=== PATIENT | female | born 1995 | race African-American/Black ===

== ENCOUNTER 2017-02-16 13:17 | Emergency (ER) | payer OTHER ==
[2017-02-16 14:39] LABS: ABSOLUTE LYMPHOCYTES (AUTO) 1.2 10^3/uL (0.5-4.7); ABSOLUTE MONOCYTES (AUTO) 0.7 10^3/uL (0.1-1.4); ABSOLUTE NEUT (AUTO) 5.1 10^3/uL (1.7-8.2); BASOPHILS % (AUTO) 0.3 % (0-2); EOSINOPHILS % (AUTO) 0.1 % (0-6); HEMATOCRIT 36.2 % (36.0-47.0); HGB HCT DIFFERENCE -0.2; LYMPHOCYTES % (AUTO) 17.4 % (13-45); MEAN CORPUSCULAR HEMOGLOBIN 26.7 pg (27.0-33.4); MEAN CORPUSCULAR HGB CONC 33.2 g/dL (32.0-36.0); MEAN CORPUSCULAR VOLUME 80 fl (80-97); MONOCYTES % (AUTO) 9.2 % (3-13); RED BLOOD COUNT 4.51 10^6/uL (3.72-5.28)
--- NOTE | 2017-02-16 18:56 | ER Document Report ---
ED GI/ - General Chief Complaint: Vaginal Bleeding Stated Complaint: VAGINAL BLEEDING Mode of Arrival: Ambulatory Information source: Patient Notes: 21 y/o F presents to ED c/o vaginal spotting and pelvic cramping. Pt reports had vaginal delivery at 24 weeks gestation 8 months. Reports has had intermittent episodes of light vaginal bleeding since delivery so is unsure of when her actual LMP was. Reports 2 weeks ago had positive home test, . States yesterday evening had some light pelvic cramping which resolved this morning but noted small amount of vaginal spotting today. Reports bleeding seems to have stopped and cramping has not returned but wanted to be evaluated since she had delivery in the past. Denies fever, n/v, dysuria, or blood in stool. TRAVEL OUTSIDE OF THE [place] IN LAST 30 DAYS: No - HPI Patient complains to provider of: Pelvic pain, , Vaginal bleeding Onset: This morning Timing/Duration: Gone Quality of pain: Cramping Severity at maximum: Mild Severity in ED: Mild, None Vaginal bleeding (Compared to normal period): Spotting Menstrual period history: Irregular : 2 Para: 1 OB ultrasound done: No vitamins taken: Yes Similar symptoms previously: Yes Recently seen / treated by doctor: No - Related Data Allergies/Adverse Reactions: carrot Allergy (Intermediate, Verified 02/16/17 14:02) shellfish derived Allergy (Intermediate, Verified 02/16/17 14:02) nut - unspecified Adverse Reaction (Unknown, Verified 02/16/17 14:02) Unknown reaction Past Medical History - General Information source: Patient Last Menstrual Period: Dec - Social History Smoking Status: Never Smoker Chew tobacco use (# tins/day): No Frequency of alcohol use: None Drug Abuse: None Lives with: Family Family History: Reviewed & Not Pertinent Patient has suicidal ideation: No Patient has homicidal ideation: No Pulmonary Medical History: Reports: Hx Asthma Renal/ Medical History: Denies: Hx Peritoneal Dialysis Surgical Hx: Negative - Immunizations Immunizations up to date: Yes Hx Diphtheria, Pertussis, Tetanus Vaccination: Yes Review of Systems - Review of Systems Constitutional: No symptoms reported EENT: No symptoms reported Cardiovascular: No symptoms reported Respiratory: No symptoms reported Gastrointestinal: No symptoms reported Genitourinary: No symptoms reported Female Genitourinary: See HPI Musculoskeletal: No symptoms reported Skin: No symptoms reported Hematologic/Lymphatic: No symptoms reported Neurological/Psychological: No symptoms reported -: Yes All other systems reviewed and negative Physical Exam - Vital signs Vitals: Temp Pulse BP Pulse Ox 98.6 F 129 H 134/85 H 100 02/16/17 14:05 02/16/17 14:05 02/16/17 14:05 02/16/17 14:05 - General General appearance: Appears well, Alert In distress: None - HEENT Head: Normocephalic, Atraumatic Eyes: Normal Pupils: PERRL - Respiratory Respiratory status: No respiratory distress Chest status: Nontender Breath sounds: Normal - CTAB Chest palpation: Normal - Cardiovascular Rhythm: Regular Heart sounds: Normal auscultation Murmur: No Pulses: Normal: Radial Normal capillary refill: Yes - Abdominal Inspection: Normal, Gravid female Distension: No distension Bowel sounds: Normal Tenderness: Nontender Organomegaly: No organomegaly - Back Back: Normal, Nontender - Extremities General upper extremity: Normal inspection, Nontender, Normal color, Normal ROM , Normal strength, Normal temperature. No: Edema General lower extremity: Normal inspection, Nontender, Normal color, Normal ROM , Normal strength, Normal temperature, Normal weight bearing. No: Edema - Neurological Neuro grossly intact: Yes Cognition: Normal Orientation: AAOx4 Ravena Coma Scale Eye Opening: Spontaneous Yunior Coma Scale Verbal: Oriented Yunior Coma Scale Motor: Obeys Commands Ravena Coma Scale Total: 15 Speech: Normal Motor strength normal: LUE, RUE, LLE, RLE Sensory: Normal - Skin Skin Temperature: Warm Skin Moisture: Dry Skin Color: Normal Course - Re-evaluation Re-evalutation: 02/16/17 18:50 Pt hemodynamically stable in no distress, afebrile. Labs unremarkable. Rhogam not indicated. U/S shows 11 week living intrauterine with subchorionic bleed. Discussed close follow-up with patient and repeat evaluation in 48hrs. Pt appears stable for discharge and agrees with home care, follow-up, and ED return precautions. - Vital Signs Vital signs: Temp Pulse Resp BP Pulse Ox 98.0 F 98 18 118/71 99 02/16/17 16:58 02/16/17 16:58 02/16/17 16:58 02/16/17 16:58 02/16/17 16:58 - Laboratory Result Diagrams: 04/10/17 14:25 Laboratory results interpreted by me: 02/16/17 02/16/17 14:25 14:25 MCH 26.7 L Beta HCG, Quant 256167.00 H - Diagnostic Test Radiology reviewed: Image reviewed, Reports reviewed Discharge - Discharge Clinical Impression: Vaginal bleeding in patient at less than 20 weeks gestation Condition: Stable Disposition: HOME, SELF-CARE Additional Instructions: BLEEDING DURING EARLY : You have been evaluated for passing blood while . While we take this symptom very seriously, many women with your sympstoms will go on to have a perfectly normal baby. At this time, there is no indication that a miscarriage will occur. (A miscarriage occurs when the fetus is abnormal. There is no medicine or treatment to prevent it.) You should rest in bed until the symptoms have resolved. Do not douche or have sex for at least a week, or until OK'd by your provider. Don't use tampons. Return for re-examination if there is an increase in bleeding or cramping, extreme weakness, fainting, new abdominal pain, fever, or passage of tissue. REPEAT BLOOD TEST: During the first three months of , the hormone produced from the placenta will steadily rise, usually doubling in value every 2 - 3 days. In order to determine if your is likely be succesful, a repeat of this blood test for the hormone is recommended in 2 - 3 days. An order for this test to be done as an outpatient is being provided. After you have this repeat test done, call your doctor or call us for the results. If the value of the test is increasing as would be expected in a normal , then your is likely to be ok. However, if the value of the test is declining, it will suggest something has happened with your and it will not likely be a successful . FOLLOW-UP CARE: Continue taking your daily vitamins. Follow-up with your MACHINE COIL ASSEMBLER tomorrow. If you experience worsening or a significant change in your symptoms (very heavy bleeding with large clots of blood, passage of tissue, more severe abdominal / pelvic pain or cramping, feeling faint or severe weakness, fever, etc.), notify the physician immediately or return to the Emergency Department at any time for re-evaluation. Forms: Follow-Up Laboratory Testing Referrals: ISIDRO LINTON MD [Primary Care Provider] - Follow up tomorrow
[2017-02-16 21:56] VITALS: BP 117/66
== END 2017-02-16 20:15 | disposition home or self-care (01) ==
LOC: ER 13:17
DX: O46.91 Antepartum hemorrhage, unspecified, first trimester (principal); R10.2 Pelvic and perineal pain
CPT/HCPCS: 36415; 76817; 84702; 85025; 86900; 86901; 99284

== ENCOUNTER 2017-03-08 21:05 | Emergency (ER) | payer OTHER ==
[2017-03-08 21:48] VITALS: BP 120/75
--- NOTE | 2017-03-08 23:30 | ER Document Report ---
ED General - General Chief Complaint: OB Problem (<20wks) Stated Complaint: VAGINAL BLEEDING Mode of Arrival: Ambulatory Information source: Patient Notes: This is a 21-year-old female at 14+3 WGA who presents with vaginal bleeding started this evening. Of note, her first was complicated by delivery at 24 weeks gestation secondary to placental abruption, July 2016. Currently she denies any pain however she states she did have several episodes of severe lower pelvic and vaginal pain while she was in the waiting room. She denies passing any clots or tissue. TRAVEL OUTSIDE OF THE [place] IN LAST 30 DAYS: No - Related Data Allergies/Adverse Reactions: carrot Allergy (Intermediate, Verified 03/08/17 21:46) shellfish derived Allergy (Intermediate, Verified 03/08/17 21:46) Past Medical History - General Information source: Patient, [facility] Records - Social History Smoking Status: Never Smoker Frequency of alcohol use: None Drug Abuse: None Lives with: Family Family History: Reviewed & Not Pertinent - Medical History Notes: Placental abruption and delivery 24 weeks Jul 2016 Pulmonary Medical History: Reports: Hx Asthma Renal/ Medical History: Denies: Hx Peritoneal Dialysis - Immunizations Immunizations up to date: Yes Hx Diphtheria, Pertussis, Tetanus Vaccination: Yes Review of Systems - Review of Systems Constitutional: No symptoms reported. denies: Chills, Fever EENT: No symptoms reported Cardiovascular: No symptoms reported Respiratory: No symptoms reported Gastrointestinal: See HPI Genitourinary: No symptoms reported Female Genitourinary: See HPI Musculoskeletal: No symptoms reported Skin: No symptoms reported Hematologic/Lymphatic: No symptoms reported Neurological/Psychological: No symptoms reported Physical Exam - Vital signs Vitals: Temp Pulse BP Pulse Ox 98.6 F 125 H 120/75 100 03/08/17 21:46 03/08/17 21:46 03/08/17 21:46 03/08/17 21:46 - Notes Notes: PHYSICAL EXAMINATION: GENERAL: Well-appearing, well-nourished and in no acute distress. HEAD: Atraumatic, normocephalic. EYES: Pupils equal round and reactive to light, extraocular movements intact, sclera anicteric, conjunctiva are normal. ENT: nares patent, oropharynx clear without exudates. Moist mucous membranes. NECK: Normal range of motion, supple without lymphadenopathy LUNGS: Breath sounds clear to auscultation bilaterally and equal. No wheezes rales or rhonchi. HEART: Regular rate and rhythm without murmurs ABDOMEN: Gravid, Soft, mild suprapubic tenderness to palpation, normoactive bowel sounds. No guarding, no rebound. No masses appreciated. PELVIC: No external lesions noted. Moderate blood in vault with small clot removed with cotton swabs. Cervix visualized, trickle bleeding noted. EXTREMITIES: Normal range of motion, no pitting or edema. No cyanosis. NEUROLOGICAL: Cranial nerves grossly intact. Normal speech. No gross focal motor or sensory deficits appreciated. PSYCH: Normal mood, normal affect. SKIN: Warm, Dry, normal turgor, no rashes or lesions noted. Course - Re-evaluation Re-evalutation: Patient remained hemodynamically stable and comfortable in the emergency department. Her ultrasound was reassuring with no evidence of subchorionic bleed or abruption. I discussed her case with the on-call OUTREACH CONSULTANT Dr. Brown who is in agreement with discharge and pelvic rest. Patient to follow-up in the OB clinic. Strict return precautions were discussed to include increased/heavier bleeding, fevers, or worsening symptoms. Patient and her family are reassured and in agreement with this plan. - Vital Signs Vital signs: Temp Pulse Resp BP Pulse Ox 98.6 F 125 H 120/75 100 03/08/17 21:46 03/08/17 21:46 03/08/17 21:46 03/08/17 21:46 - Laboratory Result Diagrams: 03/08/17 23:23 03/08/17 23:23 Laboratory results interpreted by me: 03/08/17 03/09/17 23:23 00:45 Hgb 10.9 L Hct 32.9 L MCH 26.6 L Urine Blood LARGE H - Diagnostic Test Radiology reviewed: Reports reviewed - US: Fetus at 14+6 with good heart motion, posterior placenta, cervix closed Discharge - Discharge Clinical Impression: Threatened in second trimester Condition: Stable Disposition: HOME, SELF-CARE Additional Instructions: BLEEDING DURING : You have been evaluated for passing blood while . While we take this symptom very seriously, most women with your degree of bleeding will go on to have a perfectly normal baby. At this time, there is no indication that a miscarriage will occur. (A miscarriage occurs when the fetus is abnormal. There is no medicine or treatment to prevent it.) Do not douche or have sex for at least a week, or until OK'd by the doctor. Don't use tampons. Call the doctor or return for re-examination if there is an increase in bleeding or cramping, extreme weakness, fainting, new abdominal pain, fever, or passage of tissue. THREATENED MISCARRIAGE: You have been evaluated for a possible miscarriage. At this time, there is no indication that a miscarriage will occur. Most women with your symptoms will go on to have a perfectly normal baby. However, careful observation will be necessary. A miscarriage occurs when the fetus is abnormal. There is no medicine or treatment for it. You should rest in bed until the symptoms have resolved. Do not douche or have sex for at least a week, or until OK'd by the doctor. Call the doctor or return for re-examination if there is an increase in bleeding or cramping, or passage of tissue. FOLLOW-UP CARE: If you have been referred to a physician for follow-up care, call the physician s office for an appointment as you were instructed or within the next two days. If you experience worsening or a significant change in your symptoms (very heavy bleeding with large clots of blood, passage of tissue, more severe abdominal / pelvic pain or cramping, feeling faint or severe weakness, fever, etc.), notify the physician immediately or return to the Emergency Department at any time for re-evaluation. OBSTETRIC-GYNECOLOGIC (OB-CONSULTING SME) PHYSICIANS IN [place]: [facility] [address] [place] [address] [phone] Referrals: MARCELLA BROWN MD [Primary Care Provider] - Follow up in 3-5 days
[2017-03-09 00:10] LABS: ABSOLUTE LYMPHOCYTES (AUTO) 1.2 10^3/uL (0.5-4.7); ABSOLUTE MONOCYTES (AUTO) 0.6 10^3/uL (0.1-1.4); ABSOLUTE NEUT (AUTO) 6.1 10^3/uL (1.7-8.2); BASOPHILS % (AUTO) 0.4 % (0-2); EOSINOPHILS % (AUTO) 0.5 % (0-6); HEMATOCRIT 32.9 % (36.0-47.0); HEMOGLOBIN 10.9 g/dL (12.0-15.5); HGB HCT DIFFERENCE -0.2; LYMPHOCYTES % (AUTO) 14.6 % (13-45); MEAN CORPUSCULAR HEMOGLOBIN 26.6 pg (27.0-33.4); MEAN CORPUSCULAR HGB CONC 33.1 g/dL (32.0-36.0); MEAN CORPUSCULAR VOLUME 80 fl (80-97); MONOCYTES % (AUTO) 7.6 % (3-13); RED CELL DISTRIBUTION WIDTH 13.5 % (11.5-14.0); SEGMENTED NEUTROPHILS % (AUTO) 76.9 % (42-78); WHITE BLOOD COUNT 7.9 10^3/uL (4.0-10.5)
[2017-03-09 00:44] LABS: PROTHROMBIN TIME 13.8 SEC (11.4-15.4)
[2017-03-09 00:45] LABS: FIBRINOGEN 405 mg/dL (209-497); PARTIAL THROMBOPLASTIN TIME 31.4 SEC (23.5-35.8)
[2017-03-09 01:07] LABS: AMORPHOUS SEDIMENT,URINE TRACE /HPF; APPEARANCE,URINE SLIGHTLY-CLOUDY; BILIRUBIN,URINE NEGATIVE (NEGATIVE); GLUCOSE, URINE NEGATIVE (NEGATIVE); KETONES,URINE NEGATIVE (NEGATIVE); LEUKOCYTE ESTERASE,URINE NEGATIVE (NEGATIVE); NITRITE,URINE NEGATIVE (NEGATIVE); PROTEIN,URINE NEGATIVE (NEGATIVE); URINE SPECIFIC GRAVITY 1.019; UROBILINOGEN,URINE NEGATIVE mg/dL (<2.0)
[2017-03-09 01:30] LABS: ALANINE AMINOTRANSFERASE 20 U/L (9-52); ALBUMIN 3.7 g/dL (3.5-5.0); ALKALINE PHOSPHATASE 66 U/L (38-126); ANION GAP 13 (5-19); ASPARTATE AMINO TRANSFERASE 20 U/L (14-36); BILIRUBIN,DIRECT 0.2 mg/dL (0.0-0.4); BILIRUBIN,TOTAL 0.4 mg/dL (0.2-1.3); BLOOD UREA NITROGEN 11 mg/dL (7-20); CALCIUM 10.2 mg/dL (8.4-10.2); CARBON DIOXIDE 24 mmol/L (22-30); CHLORIDE 107 mmol/L (98-107); CREATININE RESULT 0.67 mg/dL (0.52-1.25); GLUCOSE 107 mg/dL (75-110); POTASSIUM 4.2 mmol/L (3.6-5.0); SODIUM 144.2 mmol/L (137-145); TOTAL PROTEIN 7.1 g/dL (6.3-8.2)
== END 2017-03-09 02:09 | disposition home or self-care (01) ==
LOC: ER 21:05
DX: O20.0 Threatened abortion (principal); Z3A.14 14 weeks gestation of pregnancy
CPT/HCPCS: 36415; 76805; 80053; 81001; 85025; 85384; 85610; 85730; 99284

== ENCOUNTER 2017-04-23 21:13 | Inpatient (IN) | payer OTHER ==
[2017-04-23 21:42] LABS: APPEARANCE,URINE SLIGHTLY-CLOUDY; BILIRUBIN,URINE NEGATIVE (NEGATIVE); GLUCOSE, URINE NEGATIVE (NEGATIVE); KETONES,URINE NEGATIVE (NEGATIVE); LEUKOCYTE ESTERASE,URINE LARGE (NEGATIVE); NITRITE,URINE NEGATIVE (NEGATIVE); PROTEIN,URINE NEGATIVE (NEGATIVE); URINE SPECIFIC GRAVITY 1.017; UROBILINOGEN,URINE NEGATIVE mg/dL (<2.0)
[2017-04-23 21:54] LABS: URINE BARBITURATES SCREEN NEGATIVE; URINE METHADONE SCREEN NEGATIVE; URINE OPIATES LOW NEGATIVE; URINE PHENCYCLIDINE SCREEN NEGATIVE
[2017-04-23 22:39] LABS: ABSOLUTE LYMPHOCYTES (AUTO) 1.3 10^3/uL (0.5-4.7); ABSOLUTE MONOCYTES (AUTO) 1.1 10^3/uL (0.1-1.4); ABSOLUTE NEUT (AUTO) 6.1 10^3/uL (1.7-8.2); BASOPHILS % (AUTO) 0.2 % (0-2); EOSINOPHILS % (AUTO) 0.6 % (0-6); HEMATOCRIT 31.6 % (36.0-47.0); HEMOGLOBIN 10.3 g/dL (12.0-15.5); HGB HCT DIFFERENCE -0.7; LYMPHOCYTES % (AUTO) 14.7 % (13-45); MEAN CORPUSCULAR HEMOGLOBIN 25.9 pg (27.0-33.4); MEAN CORPUSCULAR HGB CONC 32.7 g/dL (32.0-36.0); MEAN CORPUSCULAR VOLUME 79 fl (80-97); MONOCYTES % (AUTO) 12.6 % (3-13); RED BLOOD COUNT 3.99 10^6/uL (3.72-5.28); RED CELL DISTRIBUTION WIDTH 13.1 % (11.5-14.0); SEGMENTED NEUTROPHILS % (AUTO) 71.9 % (42-78); WHITE BLOOD COUNT 8.5 10^3/uL (4.0-10.5)
--- NOTE | 2017-04-23 23:48 | RADIOLOGY REPORT (SQ) ---
EXAM DESCRIPTION: U/S OB LIMITED COMPLETED DATE/TIME: 04/23/2017 10:56 pm REASON FOR STUDY: cervical length,efw position of baby COMPARISON: None. TECHNIQUE: Limited transabdominal grayscale ultrasound for evaluation of specific requested obstetri clifford parameters. LIMITATIONS: None. FINDINGS: CERVICAL LENGTH: Open cervix with bulging membranes, including a lower extremity. Ultrasound composite age 20 weeks 2 days. EFW 351 g. FHR: 150 beats per minute. PRESENTATION: Breech OTHER: No other significant findings. IMPRESSION: Open cervix with bulging membranes, including a lower extremity. Ultrasound composite age 20 weeks 2 days. EFW 351 g. Trimester of : Second trimester - 13 weeks 1 day to 27 weeks 6 days. TECHNICAL DOCUMENTATION: JOB ID: [id number] [employer]- All Rights Reserved
[2017-04-24] MEDS ORDERED: NALBUPHINE HCL INJ 10 MG/1 ML AMPULE ONE ×2 (00:34→05:20)
[2017-04-24] MEDS ORDERED: NALBUPHINE HCL INJ 10 MG/1 ML AMPULE INJ ONE (05:16)
[2017-04-24] MEDS ORDERED: ONDANSETRON HCL INJ/PF 4 MG/2 ML SDV IV ONE (07:15)
[2017-04-24] MEDS ORDERED: ONDANSETRON HCL INJ/PF 4 MG/2 ML SDV ONE (07:21)
[2017-04-24] MEDS ORDERED: LIDOCAINE 1% INJ-PF (10 MG/ML) 30 ML SDV ONE (09:25)
[2017-04-24] MEDS ORDERED: MISOPROSTOL 0.2 MG TABLET ONE (09:25)
[2017-04-24] MEDS ORDERED: OXYTOCIN/NORMAL SALINE 20 UNIT/1,000 ML RTUINJ ONE (09:26)
[2017-04-24] MEDS ORDERED: DOCUSATE SODIUM 100 MG CAPSULE ONE (10:26)
--- NOTE | 2017-04-24 11:01 | L&D Progress Notes ---
PROGRESS NOTES Datetime Report Generated by CPN: 04/24/2017 11:00 PROGRESS NOTE Impression: Labor Plan: Continue Present Management Informed Consent Obtained: Risks, Benefits and Alternatives Discussed Informed Consent Obtained: Vaginal Delivery; Risks, Benefits and Alternatives Discussed Vital Signs : Reviewed Comment: 21 yo admitted last night for incompetent cervix in labor previous delivery 25-26 weeks with prolonged hospital admission- baby doing fine now poc was reviewed with pt per Dr. Simmons pt continues to desire waiting on AROM no noticeable contractions abdomen soft and nontender FHTs 140s cervix- c/c/-2 breech presentation LEONARDO hose placed and stool softener started pt and family decline autopsy would like to carty and hold fetus family at bedside and supportive VAGINAL EXAM Dilatation: 10 Effacement: 100 Station: 1 MEMBRANES Pooling: Negative FETUS A Monitoring: External US Decelerations: None : 20.6 Estimated Weight (gm): 340 Presentation: Breech SIGNATURE SIGNATURE: [id number] Assignment: Rukhsana Vega MD Signature: with User ID: [email or web address] : with User ID: [email or web address]
[2017-04-24] MEDS ORDERED: ACETAMINOPHEN 325 MG TABLET ONE (11:40)
[2017-04-24] MEDS ORDERED: FENTANYL CITRATE INJ/PF 100 MCG/2 ML AMPUL ONE ×2 (14:36→17:11)
[2017-04-24] MEDS ORDERED: MISOPROSTOL 0.1 MG TABLET ONE (16:35)
--- NOTE | 2017-04-24 16:37 | L&D Progress Notes ---
PROGRESS NOTES Datetime Report Generated by CPN: 04/24/2017 16:37 PROGRESS NOTE Vital Signs : Reviewed Comment: pt with increased pressure and urge to push increased bloody show pushed funneling membranes SROM clear presenting part hard to discern since cervix reconstituted to 3cms Dr. Vega at bedside reviewed plan of care with pt and spouse pain management prn supportive care given FETUS C SIGNATURE: [id number] Assignment: Rukhsana Vega MD Signature: with User ID: [email or web address] : with User ID: [email or web address]
--- NOTE | 2017-04-24 19:08 | Delivery Summary ---
Del Sum A-C Datetime Report Generated by CPN: 04/24/2017 19:07 DELIVERY PERSONNEL DELIVERY PERSONNEL: [id number] Delivery Doctor:: Janette Andrews CNM Labor and Delivery Nurse:: Madalyn Musa RN Stamp Mounter/SUPERVISOR PERSONNEL CLERKS: Shahana Vaca CNA II Stamp Mounter/SUPERVISOR PERSONNEL CLERKS: Lena Bowden, SUPERINTENDENT MECHANICAL MATERNAL INFORMATION Delivery Anesthesia: None Medications After Delivery: Pitocin Bolus-Please Comment; Pitocin Drip 20 Units/1000ml NSS Estimated Blood Loss (ml): 350 Maternal Complications: Precipitous Labor (<3hrs); Abnormal Cord Length; Other Other Maternal Complications: incompetent cervix Provider Comments: delivery of viable male apgars 1/1 no resuscitation performed single footling- left leg no head entrapment multiple clots fetus bundled and given to mom father at bedside cord avulsed at introitus placenta delivered intact with trailing membranes placenta evaluated by myself and Dr. Vega placenta to pathology ebl 350cc hemostasis achieved LABOR SUMMARY EDC: 09/04/2017 00:00 No. Babies in Womb: 1 Attempted: No Labor Anesthesia: None LABOR INFORMATION Reason for Induction: Not Applicable Onset of Labor: 04/24/2017 16:35 Complete Dilatation: 04/24/2017 16:50 Oxytocin: N/A Group B Beta Strep: unk Antibiotics # of Doses: 0 Steroids Given: None Reason Steroids Not Administered: Not Applicable MEMBRANES Membranes Rupture Method: Spontaneous Rupture of Membranes: 04/24/2017 16:35 Length of Rupture (hr): 0.30 Amniotic Fluid Color: Clear Amniotic Fluid Amount: Small Amniotic Fluid Odor: Normal STAGES OF LABOR Stage 1 hr: 0 Stage 1 min: 15 Stage 2 hr: 0 Stage 2 min: 3 Stage 3 hr: 0 Stage 3 min: 16 Total Time in Labor hr: 0 Total Time in Labor min: 34 VAGINAL DELIVERY Episiotomy: None Laceration Extension: N/A Laceration Type: None Laceration Repair: Not Applicable CSECTION DELIVERY Primary Indication: N/A Secondary Indication: N/A CSection Incidence: N/A Labor: N/A Elective: N/A CSection Incision: N/A BABY A INFORMATION Delivery Date/Time: 04/24/2017 16:53 Method of Delivery: Vaginal Born in Route : No : N/A Forceps: N/A Vacuum Extraction: N/A Shoulder Dystocia : No PRESENTATION/POSITION BABY A Presentation: Other Cephalic Presentation: N/A Breech Presentation: Single Footling PLACENTA INFORMATION BABY A Placenta Delivery Time : 04/24/2017 17:09 Placenta Method of Delivery: Expressed Placenta Status: Delivered SCORES BABY A Heart Rate 1 min: Slow, Below 100 bpm Resp Effort 1 min: Absent Reflex Irritability 1 min: No Response Muscle Tone 1 min: Flaccid Color 1 min: Blue/Pale Resuscitation Effort 1 min: N/A SCORE 1 MIN: 1 Heart Rate 5 min: Slow, Below 100 bpm Resp Effort 5 min: Absent Reflex Irritability 5 min: No Response Muscle Tone 5 min: Flaccid Color 5 min: Blue/Pale Resuscitation Effort 5 min: N/A SCORE 5 MIN: 1 INFANT INFORMATION BABY A Gestational Age at Delivery: 21.0 Gestational Status: - <34 Weeks Outcome : Condition : Critical Sex: Male WEIGHT/LENGTH BABY A Infant Birthweight (gm): 386 Weight (lb): 0 Weight (oz): 14 Length (in): 10.50 Length (cm): 26.67 CORD INFORMATION BABY A No. Cord Vessels: 3 Nuchal Cord : N/A Cord Blood Taken: Yes-For Eval (Mom's Blood Type - or O+) Infant Suction: None ASSESSMENT BABY A Complications: Other Complications- Other: non-viable prematurity Physical Findings- Other: eyes fused, translucent skin Maintenance Construction Helper/ALS Called : No Care By: Gabriele Musa RN Transferred To: Remains with Mother BABY B INFORMATION : N/A SIGNATURES Assignment: Rukhsana Vega MD Signature: with User ID: [email or web address] : with User ID: [email or web address]
[2017-04-24] MEDS ORDERED: ACETAMINOPHEN 650 MG SUPP.RECT PR PRN (20:16)
[2017-04-24] MEDS ORDERED: MAGNESIUM HYDROXIDE SUSP 30 ML UDCUP PO PRN (20:16)
[2017-04-24] MEDS ORDERED: DIBUCAINE 1% OINTMENT 28 GM TP PRN (20:16)
[2017-04-24] MEDS ORDERED: PROMETHAZINE HCL INJ 25 MG/1 ML VIAL IV PRN (20:16)
[2017-04-24] MEDS ORDERED: PROMETHAZINE HCL 25 MG SUPP.RECT PR PRN (20:16)
[2017-04-24] MEDS ORDERED: OXYTOCIN/NORMAL SALINE 1,000 ML IV PRN (20:16)
[2017-04-24] MEDS ORDERED: GLYCERIN/WITCH HAZEL LEAF 1 EACH MED..PAD TP PRN (20:16)
[2017-04-24] MEDS ORDERED: IBUPROFEN 800 MG TABLET ONE (20:16)
[2017-04-24] MEDS ORDERED: ACETAMINOPHEN WITH CODEINE #3 TABLET PO PRN ×2 (20:16)
[2017-04-24] MEDS ORDERED: ZOLPIDEM TARTRATE 5 MG TABLET PO PRN (20:16)
[2017-04-24] MEDS ORDERED: BENZOCAINE/MENTHOL AEROSOL SPRAY 56 ML TOP PRN (20:16)
[2017-04-24] MEDS ORDERED: DIPHENHYDRAMINE HCL 25 MG CAPSULE PO PRN (20:16)
[2017-04-24] MEDS ORDERED: PROMETHAZINE HCL 25 MG TABLET PO PRN (20:16)
[2017-04-24] MEDS ORDERED: NA PHOS,M-B/NA PHOS,DI-BA (ADULT) 133 ML ENEMA PR PRN (20:16)
[2017-04-24] MEDS ORDERED: DIPH/PERTUSS(ACELL)/TETANUS VAC/PF 0.5 ML SYR (>=10YO) IM PRN (20:16)
[2017-04-24] MEDS ORDERED: MEASLES,MUMPS&RUBELLA VACC/PF 0.5 ML VIAL SUBCUT PRN (20:16)
[2017-04-24] MEDS ORDERED: PSEUDOEPHEDRINE HCL 30 MG TABLET PO PRN (20:16)
--- NOTE | 2017-04-24 22:26 | Admission Physical ---
Datetime Report Generated by CPN: 04/24/2017 22:26 CURRENT ADMISSION Chief Complaint: Vaginal Bleeding Indication for Induction: Not Applicable Admit Plan: Admit to Unit; Initiate Demise Protocol ALLERGIES Medication Allergies: No Medication Allergies: carrot/MO (04/23/2017); shellfish derived/MO (04/23/2017) Medication Allergies: carrot/MO (03/08/2017); shellfish derived/MO (03/08/2017) Latex: No Latex Allergies Food Allergies: Carrot and Shellfish OBSTETRICAL HISTORY EDC: 09/04/2017 00:00 : 2 Para: 1 Term: 0 : 1 SAB: 0 IAB: 0 Ectopic: 0 Livin Cesareans: 0 VBACs: 0 Multiple Births: 0 Gestational Diabetes: No Rh Sensitization: No Incompetent Cervix: Yes CA: No Infertility: No ART Treatment: No Uterine Anomaly: No IUGR: No Hx Previous C/S: No Macrosomia: No Hx Loss/Stillborn: No PIH: No Hx : No Placenta Previa/Abruption: Yes Depression/PP Depression: No PTL/PROM: Yes Post Hemorrhage: No Current Procedures: Ultrasound Obstetrical History Comments: first -abruption and delivered at 24 weeks.; weekly progestorone shots this SEE RECORDS Alcohol: No Marijuana : No Cocaine: No Other Illicit Drugs: No Cigarettes: Never Smoker. [id number] MEDICAL HISTORY Diabetes: No Blood Transfusion: No Pulmonary Disease (Asthma, TB): Yes Breast Disease: No Hypertension: No Jewel Bearing Grinder Surgery: No Heart Disease: No Hosp/Surgery: Yes Autoimmune Disorder: No Anesthetic Complications: No Kidney Disease: No Abnormal Pap Smear: No Neuro/Epilepsy: No Psychiatric Disorders: No Other Medical Diseases: No Hepatitis/Liver Disease: No Significant Family History: No Varicosities/Phlebitis: No Trauma/Violence : No Thyroid Dysfunction: No Medical History Comments: asthma, anemia INFECTIOUS HISTORY Gonorrhea: No Genital Herpes: No Chlamydia: No Tuberculosis: No Syphilis: No Hepatitis: No HIV/AIDS Exposure: No Rash or Viral Illness: No HPV: No PHYSICAL EXAM General: Normal HEENT: Normal Neurologic: Normal Thyroid: Normal Heart: Normal Lungs: Normal Breast: Deferred Back: Normal Abdomen: Normal Genitourinary Exam: Normal Extremities: Normal DTRs: Normal Pelvic Type: Adequate Physical Exam Comments: Blood noted at perineum. SSE performed: telescoping membranes into vagina. No cervix visible Bedside formal US with breech presentation and legs past cervix. Gentle SVE with no remaining cervix. Vital Signs: Reviewed; Within Normal Limits VAGINAL EXAM Dilatation: 10 Effacement: 100 Station: 1 MEMBRANES Pooling: Negative FETUS A EGA: 21.0 Monitoring: External US FHR- Baseline: 145 Decelerations: None Estimated Weight (gm): 340 Presentation: Breech Admit Comment: 21yo at 21+0ega by 11+6ega US which is not c/w LMP dating. c/b h/o 24+6ega delivery which was reported as an abruption but after review of notes and presentation today more likely that she had incompetent cervix causing poss abruption. She reports 1st baby was in NICU for prolonged stay but is doing well now. She reports noting vaginal bleeding and feeling pressure since 1600 but denies cramping until recently. Reviewed with pt that at this gestational age there is nothing that can be done for recussitation and that this is an inevitable delivery. She called her family and dx reviewed with her again. Reviewed options expectant management vs AROM and allow delivery. She does not desire AROm but seems to understand that this is not going to be viable. Recommended pt to have Cerclage at 12-15wks, P17 16-36wks, Cvx lengths q 1-2wks beginning 16wks and cont to 26wks with next . Will continue to monitor for now but expect delivery soon. INFORMED CONSENT Informed Consent Obtained: Risks, Benefits and Alternatives Discussed Informed Consent Obtained: Vaginal Delivery; Risks, Benefits and Alternatives Discussed Signature: with User ID: [email or web address]
[2017-04-24] MEDS: IBUPROFEN 800 MG TABLET PO SCH (23:03)
[2017-04-25] MEDS: FAMOTIDINE 20 MG TABLET PO SCH ×3 (03:21→13:49)
[2017-04-25] MEDS: IBUPROFEN 800 MG TABLET PO SCH ×2 (06:38→13:50)
[2017-04-25 07:45] LABS: MEAN CORPUSCULAR HEMOGLOBIN 25.3 pg (27.0-33.4); MEAN CORPUSCULAR HGB CONC 32.1 g/dL (32.0-36.0); MEAN CORPUSCULAR VOLUME 79 fl (80-97); RED BLOOD COUNT 3.18 10^6/uL (3.72-5.28); RED CELL DISTRIBUTION WIDTH 13.2 % (11.5-14.0); WHITE BLOOD COUNT 7.4 10^3/uL (4.0-10.5)
[2017-04-25] MEDS ORDERED: FERROUS SULFATE 325 MG TABLET PO SCH (10:00)
[2017-04-25] MEDS ORDERED: SENNOSIDES/DOCUSATE 8.6-50 MG 1 EACH TABLET PO SCH (10:00)
[2017-04-25] MEDS ORDERED: DOCUSATE SODIUM 100 MG CAPSULE PO SCH ×2 (10:00)
[2017-04-25] MEDS ORDERED: PRENATAL VITAMIN W-O CA NO5/FE FUMARATE/FA CAPSULE PO SCH (10:00)
--- NOTE | 2017-04-25 10:18 | PDOC DISCHARGE SUMMARY ---
Final Diagnosis Discharge Date: 04/25/17 Discharge Data - Discharge Medication Home Medications: Pnv with Ca,No.72/Iron/FA [Pnv Plus Multivit Tab] 1 each PO DAILY 07/03 Ferrous Sulfate [Feosol 325 mg Tablet] 325 mg PO BID #0 tablet 04/25/17 Ibuprofen [Motrin 800 mg Tablet] 800 mg PO Q8 #0 tablet 04/25/17 Reason(s) for Admission: Other - cervical incompetence at 21 wks Procedures: None Intrapartum Procedure(s): Spontaneous Vaginal Delivery - Diagnosis Test Laboratory: Temp Pulse Resp BP Pulse Ox 97.8 F 84 16 99/56 L 99 04/25/17 08:20 04/25/17 08:20 04/25/17 08:20 04/25/17 08:20 04/25/17 08:20 04/23/17 04/23/17 04/25/17 21:25 22:26 07:36 RBC 3.99 3.18 L Hgb 10.3 L 8.0 L D Hct 31.6 L 25.0 L Urine Opiates Screen NEGATIVE - Discharge information/Instructions Discharge Activity: Pelvic Rest Discharge Diet: Regular Disposition: HOME, SELF-CARE Follow up with: [facility] in: 2, Weeks
[2017-04-25 12:56] VITALS: BP 105/61
== END 2017-04-25 14:53 | disposition home or self-care (01) | DRG 774 ==
LOC: LC 21:13 → LR 22:12 → 2N 04-24 22:24
PROVIDERS: ADMIT Student in an Organized Health Care Education/Training Program; ATTEND Student in an Organized Health Care Education/Training Program
PROC: 10E0XZZ Delivery of Products of Conception, External Approach (ICD-10-PCS; principal; 2017-04-23)
PROC: 4A1HXCZ Monitoring of Products of Conception, Cardiac Rate, External Approach (ICD-10-PCS; 2017-04-23)
DX: O34.32 Maternal care for cervical incompetence, second trimester (principal); O88.22 Thromboembolism in childbirth; O36.4XX0 Maternal care for intrauterine death, not applicable or unspecified; O99.012 Anemia complicating pregnancy, second trimester; D64.9 Anemia, unspecified; O99.512 Diseases of the respiratory system complicating pregnancy, second trimester; J45.909 Unspecified asthma, uncomplicated; O69.9XX0 Labor and delivery complicated by cord complication, unspecified, not applicable or unspecified; O32.8XX0 Maternal care for other malpresentation of fetus, not applicable or unspecified; O62.3 Precipitate labor; Z91.013 Allergy to seafood; Z91.018 Allergy to other foods; Z3A.21 21 weeks gestation of pregnancy; Z37.1 Single stillbirth
CPT/HCPCS: 36415; 76815; 80307; 81001; 85025; 85027; 86592; 86850; 86900; 86901; 88307; J2300; J2405; J2590; J3010; J3490